=== PATIENT | male | born 1965 | race Caucasian/White ===

== ENCOUNTER → 2016-12-31 | Outpatient (CLI) | payer OTHER ==
[~2016-12-31] MED LIST: KEFLEX 500MG.500 MG PO; ZIAC 2.5 MG-6.21 TAB PO
[2016-12-31 09:34] LABS: BILIRUBIN, INDIRECT 3.17 mg/dL (0-0.9)
== END ==
LOC: LAB 09:03
PROVIDERS: Internal Medicine
DX: I25.10 Atherosclerotic heart disease of native coronary artery without angina pectoris (principal); M79.621 Pain in right upper arm; E78.5 Hyperlipidemia, unspecified

== ENCOUNTER → 2017-01-19 | Outpatient (CLI) | payer OTHER ==
--- NOTE | 2017-01-19 21:16 | RADIOLOGY REPORT PS360 ---
PROCEDURE: 2-D M-mode and color Doppler study INDICATIONS FOR THE TEST: Chest pain COPD Heart Murmur Tobacco Smoking Palpitations Fatigue Syncope Edema Hypertension+Diabetes Mellitus Rheumatic Fever SOB DODD Obesity Hyperlipidemia+ Family History HD Additional History STENT 12-24-16 PATIENT INFORMATION HEIGHT:69 WEIGHT:170 GENDER: Male B/P:122/75 2-D/M-MODE INTERPRETATION: 2-D MEASUREMENTS OBSERVED VALUES IN CMS Right Ventricular Dimension (RVDd) 2.2 Interventricular Septum (Thickness)(IVsd) 1.1 Left Ventricular Internal Dimensions(LVIDd) 5.5 Left Ventricular Posterior Wall (Thickness)(LVPWd) 0.5 Aortic Root 3.2 Aortic Cusp Separation 1.9 Left Atrial Dimensions (LAD) 3.5 2D 1. Left atrium is qualitatively mildly enlarged, left ventricle is normal size, there is mild qualitative concentric left ventricular hypertrophy, visually estimated ejection fraction of 55% with no obvious regional wall motion abnormality. 2. The right atrium is mildly enlarged, right ventricle is normal size and contractility. 3. The aortic valve is minimally thickened and fibrosed. 4. The mitral and tricuspid valvular minimally thickened. 5. The pulmonic valve is poorly visualized. 6. No significant pericardial effusion noted. DOPPLER INTERROGATION: Doppler interrogation of the aortic, mitral and tricuspid valvular presence of mild mitral and tricuspid regurgitation, calculated right ventricular systolic pressure is 35 mmHg, grade 1 diastolic dysfunction seen without tissue Doppler evidence of raised left atrial pressure. CONCLUSION: 1. Mild biatrial enlargement, normal left ventricular size, mild concentric left ventricular hypertrophy, visually estimated ejection fraction 55% with no obvious regional wall motion abnormality, grade 1 diastolic dysfunction seen without tissue Doppler evidence of raised left atrial pressure. 2. Mild mitral and tricuspid regurgitation, calculated right ventricular systolic pressure is 35 mmHg. 3. No significant pericardial effusion noted.
--- NOTE | 2017-01-22 13:23 | RADIOLOGY REPORT PS360 ---
History and Indications: Coronary artery disease, hypertension, family history, chest pain suggestive of angina Procedure: Patient exercised on Wilson protocol for 12 minutes, resting heart rate was 51 bpm, resting blood pressure 122/75, with exercise maximum heart rate achieved was 1 46 bpm, which is equal to 87% of the maximum heart rate and a blood pressure was 166/88. Patient has good exercise capacity achieved 12.8mets of workload on treadmill, the blood pressure response to exercise was adequate. Test was started due to shortness of breath and fatigue, patient denied any complained of chest pain. Electrocardiogram: Resting electrocardiogram showed sinus rhythm, with exercise there is 1.[address] segment depression noted from the baseline EKG. The EKG portion of the exercise Myoview is positive for ischemia. Cardiac stress and resting SPECT images: Cardiac stress and rest SPECT images were obtained using technetium 99 Myoview 10.6 mCi at rest and 32.9 mCi at stress, gated SPECT further analysis of segmental wall motion and calculation of the ejection fraction also done. Cardiac stress and rest images show uniform myocardial activity without any segmental perfusion abnormality, computer derived ejection fraction is 61 percent with no obvious regional wall motion abnormality, right ventricle is mildly enlarged with normal contractility. Conclusion: 1. The EKG portion of the exercise Myoview is positive for ischemia, patient has good exercise capacity achieved 12.8mets of workload on treadmill, the blood pressure response to exercise was adequate, test was started due to shortness of breath and fatigue. 2. No obvious scintigraphic evidence of reversible ischemia seen at this level of exercise, the ejection fraction is 61% with no obvious regional wall motion abnormality, right ventricle is mildly enlarged with normal contractility.
== END ==
LOC: RAD 06:38
DX: I25.10 Atherosclerotic heart disease of native coronary artery without angina pectoris (principal); R94.39 Abnormal result of other cardiovascular function study; M79.601 Pain in right arm; E78.5 Hyperlipidemia, unspecified
CPT/HCPCS: A9502